=== PATIENT | female | born 2000 | race Caucasian/White ===

== ENCOUNTER 2019-05-25 08:37 | Emergency (ER) | payer OTHER, SELFPAY ==
[2019-05-25 09:15] VITALS: BP 137/40; PULSE 93; RESP 16; TEMP 37; O2SAT 100
--- NOTE | 2019-05-25 09:24 | ED.URI ---
HPI - URI/Sore Throat General Chief Complaint: Upper Respiratory Infection Stated Complaint: Chest pain/SOB/Cough Time Seen by Provider: 05/25/19 09:24 Source: patient History of Present Illness HPI Narrative: Patient presents with loose congestion cough. No shortness of breath and no chest pain. Patient states she was at her primary care provider's office 1 week for evaluation of same symptoms and was told to take Mucinex. Patient is here today and states Mucinex is not helping with her cough. Patient denies any ear pain does report nasal drainage and congestion. No fever. Patient also requests a note for work. States she missed work today due to her illness. MD elicited complaint: cough, rhinorrhea and nasal congestion Related Data Home Medications Medication Instructions Recorded Confirmed cholecalciferol (vitamin D3) 50,000 unit PO WEEKLY 03/31/19 05/25/19 [Dialyvite Vitamin D] doxycycline hyclate 100 mg PO DAILY 03/31/19 05/25/19 fluoxetine 40 mg PO DAILY 03/31/19 05/25/19 levothyroxine 125 mcg PO DAILY 03/31/19 05/25/19 norethindrone-e.estradiol-iron 1 tablet PO DAILY 03/31/19 05/25/19 [Junel FE 1.5/30 (28)] tlvvidepo-PQ-eiefofht-guaifen 2 tablet PO Q4-6H PRN 05/25/19 05/25/19 [Mucinex Sinus-Max Pressure-Cgh] Allergies Allergy/AdvReac Type Severity Reaction Status Date / Time No Known Allergies Allergy Verified 05/25/19 08:57 Review of Systems Review of Systems: Narrative: CONSTITUTIONAL: Denies fever, chills, or sweats. EYES: Denies visual changes, redness, or discharge. ENT: Denies sore throat, or otalgia. CARDIOVASCULAR: Denies chest pain, palpitations, or edema. RESPIRATORY: Denies dyspnea. GASTROINTESTINAL: Denies abdominal pain, nausea, vomiting, or diarrhea. GENITOURINARY: Denies dysuria or hematuria. SKIN: Denies rash or itching. MUSCULOSKELETAL: Denies back pain, joint pain, or myalgia. NEUROLOGIC: Denies headache, numbness, or weakness. PSYCHIATRIC: Denies anxiety or depression. [facility] Family History Family History Other CAD (coronary artery disease) Cancer Diabetes mellitus Social History Social History Smoking status: Never smoker Second hand tobacco smoke exposure: Yes Alcohol intake: never Comments At time of signature, agree with nursing past medical, surgical, social and family history. There is no relevant family history pertinent to the presenting complaint Exam Narrative: Exam Narrative: GENERAL APPEARANCE: The patient is a well-developed, well-nourished who is awake, active. Interacts appropriately with surroundings and in no acute distress. SKIN: Skin is warm and dry without erythema, swelling or exudate. There is good turgor. No tenting. HEAD: Atraumatic. Normocephalic. No temporal or scalp tenderness. EYES: Moist and bright. Sclera and conjunctivae normal. No discharge. PERRLA. Extraocular motions intact. Gross visual acuity intact. EARS: Pinna is normal shape and contour. Clear external auditory canals. TM pearly adamson with good cone of light, no erythema or suppuration. Bilateral cerumen noted no gross hearing deficit. NOSE: pink, moist mucosa with good air movement. Clear rhinorrhea without nasal flaring. Septum midline. Mouth: moist mucous membranes. THROAT; mild erythema noted to posterior oropharynx with moderate postnasal drainage. Without exudate or ulceration.. Uvula midline. Normal movement of soft palate. NECK: Supple and nontender with full range of motion without discomfort. No meningeal signs. LUNGS: Equal and bilateral breath sounds without wheezes, rales or rhonchi. CHEST: The chest wall is without retractions or use of accessory muscles. HEART: Has a regular rate and rhythm without murmur, gallops, click or rub. ABDOMEN: Soft, nontender with positive active bowel sounds. No rebound tenderness. EXTREMITIES: Without cyanosis, clubbing or ed
== END 2019-05-25 09:32 | disposition home or self-care (01) ==
PROVIDERS: Emergency Provider Nurse Practitioner Family
DX: B34.9 Viral infection, unspecified (principal); J06.9 Acute upper respiratory infection, unspecified
CPT/HCPCS: 99213; G0463

== ENCOUNTER 2021-10-27 10:10 | Emergency (ER) | payer OTHER, SELFPAY ==
--- NOTE | 2021-10-27 10:12 | ED.EAR ---
HPI - Ear Problem General Chief complaint: Ear Stated complaint: ear pain Time Seen by Provider: 10/27/21 10:12 Source: patient and RN notes reviewed History of Present Illness HPI Narrative: Patient is a 21-year-old female who presents the urgent care with complaints of bilateral ear pain for the last few days. Patient states its worse on the left and she is now having drainage. Patient denies of any recent swimming. Denies of fevers, nausea or vomiting. States that she has a fear of bugs in her ear and is constantly sticking her fingers in her ear . Patient has been taking Tylenol and ibuprofen for pain. No other acute complaints. No acute distress noted. Patient aware of the plan of care. Some parts of this dictation were generated by voice recognition software and may contain typographical and/or grammatical inaccuracies. Related Data Home Medications Medication Instructions Recorded Confirmed cholecalciferol (vitamin D3) 125 50,000 unit PO WEEKLY 03/31/19 05/25/19 mcg (5,000 unit) capsule (Dialyvite Vitamin D) doxycycline hyclate 100 mg tablet 100 mg PO DAILY 03/31/19 05/25/19 fluoxetine 40 mg capsule 40 mg PO DAILY 03/31/19 05/25/19 levothyroxine 125 mcg tablet 125 mcg PO DAILY 03/31/19 05/25/19 norethindrone 1.5 mg-ethinyl 1 tablet PO DAILY 03/31/19 05/25/19 estradiol 30 mcg(21)/iron 75 mg(7) tablet (Junel FE 1.5/30 (28)) clotrimazole 1 % topical cream 1 applic topical DAILY 10/27/21 10/27/21 ergocalciferol (vitamin D2) 1,250 1,250 mcg PO WEEKLY 10/27/21 10/27/21 mcg (50,000 unit) capsule ferrous sulfate 325 mg (65 mg 1 tablet DAILY 10/27/21 10/27/21 iron) tablet (FeroSul) folic acid 1 mg tablet 1 tablet DAILY 10/27/21 10/27/21 hydroxyzine HCl 25 mg tablet 1 tablet DAILY 10/27/21 10/27/21 ketoconazole 2 % topical cream 1 applic topical DAILY 10/27/21 10/27/21 metformin 500 mg tablet,extended 1 tablet PO DAILY 10/27/21 10/27/21 release 24 hr Allergies Allergy/AdvReac Type Severity Reaction Status Date / Time No Known Allergies Allergy Verified 10/27/21 10:21 Review of Systems Review of Systems: CONSTITUTIONAL: Denies fever, chills, or sweats. EYES: Denies visual changes, redness, or discharge. ENT: Denies rhinorrhea, congestion, sore throat. Reports of bilateral otalgia with left drainage CARDIOVASCULAR: Denies chest pain, palpitations, or edema. RESPIRATORY: Denies cough or dyspnea. GASTROINTESTINAL: Denies abdominal pain, nausea, vomiting, or diarrhea. GENITOURINARY: Denies dysuria or hematuria. SKIN: Denies rash or itching. MUSCULOSKELETAL: Denies back pain, joint pain, or myalgia. NEUROLOGIC: Denies headache, numbness, or weakness. All other systems reviewed are negative, except as documented in HPI. [facility] Family History Family History Other CAD (coronary artery disease) Cancer Diabetes mellitus Social History Social History Smoking status: Never smoker Second hand tobacco smoke exposure: Yes Alcohol intake: never Comments At the time of my signature, I reviewed and agree with the nursing past medical, surgical, social, and family history. There is no relevant family history pertinent to the patient complaint. Exam Narrative: GENERAL: This is a well-nourished, well-developed patient, in no apparent distress. HEAD: normocephalic, atraumatic. EYES: PERRL. Sclera clear/white. Vision is grossly intact. EARS: External ears normal, moderate edema and scant drainage from the left auditory canal, unable to visualize left TM. Mild edema and erythema noted to the right auditory canal with slightly injected right TM with small effusion. NOSE: External nose normal with no obvious nasal discharge, nares without redness, no rhinorrhea. THROAT: Mucous membranes moist NECK: Neck supple CARDIOVASCULAR: Regular rate and rhythm without murmurs, gallops, or rubs. RESPIRATO
[2021-10-27 10:16] VITALS: BP 147/79; PULSE 101; RESP 20; TEMP 37.6; O2SAT 100
== END 2021-10-27 10:34 | disposition home or self-care (01) ==
PROVIDERS: Emergency Provider Nurse Practitioner Family; PCP Nurse Practitioner Family
DX: H60.93 Unspecified otitis externa, bilateral (principal); H67.2 Otitis media in diseases classified elsewhere, left ear; E03.9 Hypothyroidism, unspecified; E55.9 Vitamin D deficiency, unspecified; E28.2 Polycystic ovarian syndrome; F41.9 Anxiety disorder, unspecified
CPT/HCPCS: 99213; G0463

== ENCOUNTER 2022-10-09 09:24 | Emergency (ER) | payer OTHER, SELFPAY ==
[2022-10-09 09:36] VITALS: BP 131/83; PULSE 103; RESP 16; TEMP 37.3; O2SAT 100
--- NOTE | 2022-10-09 10:13 | ED.EAR ---
HPI - Ear Problem General Chief complaint: Ear Stated complaint: earache both Source: patient and RN notes reviewed History of Present Illness HPI Narrative: 22-year-old female presents to urgent care with complaints bilateral ear pain, mostly left. Patient states has been going on for last 2 days that she believes is an ear infection. Patient does report noticing some drainage from left ear yesterday. Reports muffled hearing in the right ear. Denies any congestion, runny nose fevers, or chills. Some parts of this dictation were generated by voice recognition software and may contain typographical and/or grammatical inaccuracies. Related Data Home Medications Medication Instructions Recorded Confirmed cholecalciferol (vitamin D3) 125 50,000 unit PO WEEKLY 03/31/19 10/09/22 mcg (5,000 unit) capsule (Dialyvite Vitamin D) doxycycline hyclate 100 mg tablet 100 mg PO DAILY 03/31/19 10/09/22 fluoxetine 40 mg capsule 60 mg PO DAILY 03/31/19 10/09/22 levothyroxine 125 mcg tablet 125 mcg PO DAILY 03/31/19 10/09/22 ergocalciferol (vitamin D2) 1,250 1,250 mcg PO WEEKLY 10/27/21 10/09/22 mcg (50,000 unit) capsule ferrous sulfate 325 mg (65 mg 1 tablet DAILY 10/27/21 10/09/22 iron) tablet (FeroSul) folic acid 1 mg tablet 1 tablet DAILY 10/27/21 10/09/22 hydroxyzine HCl 25 mg tablet 1 tablet DAILY 10/27/21 10/09/22 ketoconazole 2 % topical cream 1 applic topical DAILY 10/27/21 10/09/22 metformin 500 mg tablet,extended 1 tablet PO DAILY 10/27/21 10/09/22 release 24 hr Allergies Allergy/AdvReac Type Severity Reaction Status Date / Time No Known Allergies Allergy Verified 10/09/22 10:02 Review of Systems Review of Systems: CONSTITUTIONAL: Denies fever, chills, or sweats. EYES: Denies visual changes, redness, or discharge. ENT: My bilateral ear pain mostly on the left CARDIOVASCULAR: Denies chest pain, palpitations, or edema. RESPIRATORY: Denies cough or dyspnea. GASTROINTESTINAL: Denies abdominal pain, nausea, vomiting, or diarrhea. GENITOURINARY: Denies dysuria or hematuria. SKIN: Denies rash or itching. MUSCULOSKELETAL: Denies back pain, joint pain, or myalgia. NEUROLOGIC: Denies headache, numbness, or weakness. Pertinent positives per HPI. [facility] Family History Family History Other CAD (coronary artery disease) Cancer Diabetes mellitus Social History Social History Smoking status: Never smoker Second hand tobacco smoke exposure: Yes Alcohol intake: never Comments At the time of my signature, I reviewed and agree with the nursing past medical, surgical, social, and family history. There is no relevant family history pertinent to the patient complaint. Exam Narrative: GENERAL: This is a well-nourished, well-developed patient, in no apparent distress. HEAD: normocephalic, atraumatic. EYES: Sclera clear/white. Vision is grossly intact. EARS: External ears normal, right auditory canal clear and without drainage, Right TM normal without perforation. Hearing grossly intact. Left canal noted to have white discharge; left TM noted to be erythremic and bulging without perforation. NOSE: External nose normal with no obvious nasal discharge, nares without redness, no rhinorrhea. THROAT: Mucous membranes moist, posterior pharynx clear. NECK: Neck supple, non-tender without lymphadenopathy, masses or thyromegaly. CARDIOVASCULAR: Regular rate RESPIRATORY: No respiratory distress SKIN: warm, intact with no suspicious lesions or rash, good texture and turgor. NEURO: awake, alert, and oriented to person, place and time. There were no obvious focal neurologic abnormalities. Course Course Level of Care: Express Care Visit Vital Signs Vital signs: Vital Signs Temperature 99.2 F 10/09/22 09:36 Pulse Rate 103 H 10/09/22 09:36 Respiratory Rate 16 10/09/22 09:36 Blood Pressure
== END 2022-10-09 10:15 | disposition home or self-care (01) ==
PROVIDERS: Emergency Provider Nurse Practitioner Family
DX: H66.92 Otitis media, unspecified, left ear (principal); E03.9 Hypothyroidism, unspecified; E28.2 Polycystic ovarian syndrome; F41.9 Anxiety disorder, unspecified; E55.9 Vitamin D deficiency, unspecified
CPT/HCPCS: 99213; G0463